=== PATIENT | female | born 1950 | race Asian ===

== ENCOUNTER 2021-09-23 10:18 | Outpatient (CLI) | payer MEDICARE, SELFPAY ==
--- NOTE | 2021-09-23 | ECHO_ITS ---
Patient Info Name: Rich Meza Age: 70 years : 1950 Gender: Female Ht: 60 in Wt: 140 lbs BSA: 1.66 m2 HR: 85 bpm BP: 189 / 93 mmHg Heart Rhythm: Sinus Rhythm Technical Quality: Fair Exam Date: 09/23/2021 10:56 AM Exam Location: [facility] Patient Status: Outpatient Admit Date: 09/23/2021 Staff Ordering Physician: Ruma, Marcela Ahmadi MD Expressive Therapist: Maria Del Carmen Clark RDCS Attending Provider: Ruma, Marcela Ahmadi MD Referring Physician: Ruma SAVAGE; Exam Type: CA echo doppler color flow Study Info Indications R01.1 - Cardiac murmur, unspecified Complete two-dimensional, color flow and Doppler transthoracic echocardiogram is performed. Summary 1. Complete two-dimensional, color flow and Doppler transthoracic echocardiogram is performed. 2. Normal LV size, moderate LVH, normal LV systolic function, ejection fraction about 70%. Grade 1 diastolic dysfunction. Borderline left atrial enlargement. Normal mitral valve structure, trivial MR. Mild aortic valve sclerosis, mild aortic valve stenosis, Vmax 2 m/sec, mean gradient 8 mmHg, calculated aortic valve area 1.9 cm2. Trivial TR, RVSP 37 mmHg. Normal sinus rhythm. Left Ventricle Left ventricular chamber dimension is normal. Left ventricular systolic function is normal, estimated at >70%. There is moderately increased left ventricular wall thickness. The left ventricular diastolic function is grade I diastolic dysfunction. Right Ventricle Right ventricular chamber dimension is normal. Right ventricular systolic function is normal. Left Atria Left atrial chamber dimension is normal. Right Atria Right atrial chamber dimension is normal. Aortic Valve There is mild aortic valve sclerosis. There is mild aortic valve stenosis with a peak velocity of 196 cm/s, mean gradient of 7 mmHg, and aortic valve area of 1.9 cm2. There is trace aortic valve regurgitation. Pulmonic Valve The pulmonic valve is normal. Mitral Valve The mitral valve has normal leaflets. There is trace mitral valve regurgitation. Tricuspid Valve The tricuspid valve leaflets are normal. There is trace tricuspid valve regurgitation. Pericardium/Pleural The pericardium appears epicardial fat pad. There is no pericardial effusion. Inferior Vena Cava Normal inferior vena cava with >50% collapse upon inspiration consistent with normal right atrial pressure, 10 mmHg. Aorta The aortic root size at the sinus of Valsalva is normal. Left Ventricular Outflow Tract Name Value Normal LVOT 2D LVOT Diameter 1.9 cm LVOT Doppler LVOT Peak Gradient 5 mmHg LVOT Mean Gradient 3 mmHg LVOT VTI 27 cm LVOT VTI/AV VTI Ratio 0.7 LVOT Stroke Volume 76 ml LVOT CO 5.2 l/min LVOT CI 3.1 l/min/m2 Pulmonic Valve Name Value Normal
== END 2021-09-23 10:19 | disposition home or self-care (01) ==
PROVIDERS: PCP Family Medicine; Visit Provider Family Medicine
DX: R01.1 Cardiac murmur, unspecified (principal)
CPT/HCPCS: 93306

== ENCOUNTER 2024-04-25 13:42 | Outpatient (CLI) | payer MEDICARE, SELFPAY ==
--- NOTE | ~2024-04-25 | CT_ITS ---
EXAMINATION: CT abdomen pelvis wo/w con DATE: 04/25/2024 14:26 INDICATION: Renal stone TECHNIQUE: Computed tomography (CT) of the abdomen and pelvis was performed without and with 130 cc O mnipaque 350 intravenous contrast. The dose-length product was 1424.14 mGy-cm. Automated exposure con trol and iterative reconstruction technique were employed. COMPARISON: None. FINDINGS: Lung bases are unremarkable. Heart size normal. There is hiatal hernia. There are changes o f gastric bypass surgery. There are gallstones. There is a 7 mm stone in the left renal pelvis. Fatty infiltration of the liver. The spleen, pancreas, kidneys are unremarkable. Ureters are normal in cou rse and caliber. No significant vascular abnormality. No lymphadenopathy. Nonobstructive bowel gas pa ttern. No free air or free fluid. IMPRESSION: 1. Nonobstructing 7 mm left renal stone. 2: Fatty infiltration of the liver. 3: Cholelithiasis. Reviewed, dictated and finalized at location B.
[2024-04-25 14:03] LABS: Estimated Glomerular Filt Rate > 60
== END 2024-04-25 13:43 ==
DX: N20.0 Calculus of kidney (principal); K76.0 Fatty (change of) liver, not elsewhere classified; K80.20 Calculus of gallbladder without cholecystitis without obstruction
CPT/HCPCS: 74178; Q9967